=== PATIENT | female | born 1985 | race Caucasian/White ===

== ENCOUNTER 2017-12-24 20:59 | Inpatient (IN) | payer OTHER ==
[~2017-12-24] VITALS: Ht 157.5 cm; Wt 62.2 kg
[~2017-12-24 20:59] MED LIST: MIDAZOLAM 2 MG/2 ML VIAL ONE; PROPOFOL 200 MG/20 ML VIAL IV ONE; fentaNYL 0.05 MG/ML VIAL ONE
--- NOTE | 2017-12-24 21:25 | NUR ---
PT TAKEN TO BED 3
[2017-12-24 21:32] VITALS: BP 118/56
--- NOTE | 2017-12-24 21:49 | NUR ---
PATIENT PRESENTS TO ED WITH CELLULITIS. PT STATES SWOLLEN FOR ONE WEEK. THERE IS UNILATERAL TO THE LEFT LEG, ERYTHEMA NOTED TO BILATERAL LEG, SKIN WARM TO TOUCH, ERYTHEMA RADIATES BILATERAL LEGS TO ABDOMEN AND BACK.PT STATES NKA AT THE MOMENT, BUT DID STATES MILD RXN TO PREVIOUS ABX BACTRIM DS. DENIES N/V/D; AAOX4 WITH EVEN AND STEADY GAIT; PT DENIES ANY FEVER, CP, SOB, OR COUGH AT THIS TIME; PATIENT STATES PAIN OF 10/10 AT THIS TIME; VSS; PATIENT POSITIONED FOR COMFORT; HOB ELEVATED; BEDRAILS UP X2; BED DOWN. ER MD MADE AWARE OF PT STATUS.
--- NOTE | 2017-12-24 21:53 | NUR ---
Dr. Larios evaluating patient.
[2017-12-24] MEDS ORDERED: NACL 0.9% 500 ML IV SCH (21:55)
[2017-12-24] MEDS ORDERED: CLINDAMYCIN 900 MG in DEXTROSE 5% 100 ML IV ONE (21:55)
[2017-12-24] MEDS ORDERED: PIPERACILLIN/TAZOBACTAM 3.375 GM in DEXTROSE 5% 50 ML IV ONE (22:05)
[2017-12-24] MEDS ORDERED: PIPERACILLIN/TAZOBACTAM 3.375 GM VIAL IV ONE (22:17)
[2017-12-24 22:31] LABS: APPEARANCE,URINE SL CLOUDY (CLEAR); BILIRUBIN,URINE NEGATIVE (NEGATIVE); BLOOD, URINE NEGATIVE (NEGATIVE); COLOR,URINE YELLOW (YELLOW); LEUKOCYTE ESTERASE ,URINE 1+ (NEGATIVE); NITRITE, URINE NEGATIVE (NEGATIVE); PH,URINE 6.5 (5.0-9.0); UGLUCOSE NEGATIVE (NEGATIVE)
--- NOTE | 2017-12-24 22:31 | NUR ---
X-Ray at bedside.
[2017-12-24 22:36] LABS: HEMATOCRIT 26.1 % (36-48); HEMOGLOBIN 8.2 g/dL (12.0-16.0); MEAN CORPUSCULAR HEMOGLOBIN 22 pg (27-31); MEAN CORPUSCULAR HGB CONC 31 g/dL (33-37); MEAN CORPUSCULAR VOLUME 71 fL (80-94); PLATELET COUNT (AUTO) 257 K/uL (140-450); RED BLOOD CELL COUNT(AUTO) 3.68 MIL/uL (4.20-5.40); RED CELL DISTRIBUTION WIDTH 16.5 % (11.6-13.7)
[2017-12-24 22:46] LABS: ALBUMIN 2.5 g/dL (3.4-5.0); ANION GAP 15.4 (8-16); CARBON DIOXIDE 23.3 mmol/L (21-32); CREATININE 0.8 mg/dL (0.6-1.3); POTASSIUM 3.7 mmol/L (3.5-5.1); TOTAL BILIRUBIN 0.1 mg/dL (0.0-1.0)
[2017-12-24 22:52] LABS: PROTHROMBIN TIME 10.2 secs (10.8-13.4)
[2017-12-24 22:53] LABS: RBC,URINE 0-5 (RARE) /HPF (0-5)
[2017-12-24 22:59] LABS: WHITE BLOOD COUNT (AUTO) 19.1 K/uL (4.8-10.8)
[2017-12-24 23:00] LABS: EOSINOPHILS % (MANUAL) 1 % (0-4); LYMPHOCYTES % (MANUAL) 8 % (20-46); MONOCYTES % (MANUAL) 2 % (5-12)
[2017-12-24] MEDS ORDERED: CLINDAMYCIN 900 MG/6 ML VIAL IV ONE (23:13)
[2017-12-24] MEDS ORDERED: ONDANSETRON 4 MG/2 ML VIAL IVP PRN (23:35)
[2017-12-24] MEDS ORDERED: ACETAMINOPHEN 325 MG TAB PO PRN (23:35)
[2017-12-24] MEDS ORDERED: VANCOMYCIN 1,000 MG in DEXTROSE 5% 250 ML IV ONE (23:35)
[2017-12-24] MEDS ORDERED: VANCOMYCIN PER PHARMACY MC PRN (23:40)
--- NOTE | 2017-12-24 23:58 | NUR ---
TEDDY 1 GM NOT GIVEN CLEOCIN STILL RUNNING, WILL ENDORSE TO MED SURG NURSE
[2017-12-25 00:15] VITALS: BP 105/60
--- NOTE | 2017-12-25 00:15 | NUR ---
RECEIVED HANDOFF REPORT FROM AUTOMOBILE SPRING REPAIRER. PATIENT A&OX4. PATIENT DENIES PAIN. IV SITE PATENT AND INTACT. PATIENT HAS ERYTHEMA THROUGHOUT BODY, DENIES PAIN. PATIENT ORIENTED TO UNIT. SAFETY MEASURES ENSURED. CALL LIGHT WITHIN REACH. WILL CONTINUE TO MONITOR.
--- NOTE | 2017-12-25 00:25 | NUR ---
Patient will be admitted to care of . Admited to MS. Will go to room 111B. Belongings list completed. Report to MIHIR DOMINGO.
[2017-12-25] MEDS ORDERED: VANCOMYCIN 1,000 MG VIAL ONE (01:08)
[2017-12-25] MEDS: ZOLPIDEM 5 MG TAB PO PRN (01:46)
--- NOTE | 2017-12-25 07:10 | NUR ---
RECEIVED PATIENT REPORT AT BEDSIDE. PATIENT ASLEEP BUT AROUSABLE.REDNESS NOTED TO BLE. SKIN IS WARM TO TOUCH. IV LINE NOTED TO THE LEFT AC. BED LOWERED WITH CALL LIGHT WITHIN REACH. WILL CONTINUE TO MONITOR
--- NOTE | 2017-12-25 07:16 | NUR ---
ENDORSED PLAN OF CARE TO AM RN. PATIENT IN STABLE CONDITION.
[2017-12-25 08:00] VITALS: BP 116/58
[2017-12-25] MEDS: ENOXAPARIN 40 MG/0.4 ML SYR SUBQ SCH (08:19)
--- NOTE | 2017-12-25 08:32 | NUR ---
PATIENT HAS BEEN SCREENED AND CATEGORIZED LOW NUTRITION RISK. PATIENT WILL BE SEEN WITHIN 7 DAYS OF ADMISSION. 12/30/[address]
--- NOTE | 2017-12-25 09:30 | NUR ---
TEMPERATURE RECHECKED 99.5. NO S/S OF DISTRESS
[2017-12-25 09:51] LABS: HEMATOCRIT 26.6 % (36-48); HEMOGLOBIN 8.3 g/dL (12.0-16.0); MEAN CORPUSCULAR HEMOGLOBIN 22 pg (27-31); MEAN CORPUSCULAR HGB CONC 31 g/dL (33-37); MEAN CORPUSCULAR VOLUME 72 fL (80-94); PLATELET COUNT (AUTO) 269 K/uL (140-450); RED BLOOD CELL COUNT(AUTO) 3.73 MIL/uL (4.20-5.40); RED CELL DISTRIBUTION WIDTH 16.7 % (11.6-13.7)
[2017-12-25 10:06] LABS: ANION GAP 13.7 (8-16); CARBON DIOXIDE 24.4 mmol/L (21-32); CREATININE 0.8 mg/dL (0.6-1.3); POTASSIUM 4.1 mmol/L (3.5-5.1)
[2017-12-25 10:27] LABS: LYMPHOCYTES % (MANUAL) 3 % (20-46); MONOCYTES % (MANUAL) 4 % (5-12)
--- NOTE | 2017-12-25 11:30 | NUR ---
PATIENT ASLEEP IN BED. NO S/S OF DISTRESS NOTED
[2017-12-25] MEDS: VANCOMYCIN 750 MG in DEXTROSE 5% 250 ML IV SCH (12:51)
--- NOTE | 2017-12-25 14:45 | NUR ---
PATIENT ASLEEP IN BED. FAMILY MEMBER PRESENT AT BEDSIDE
[2017-12-25 14:46] LABS: BARBITURATE, URINE NEG. ng/ml (NEG <=200); BENZODIAZEPINE, URINE POS. ng/mL (NEG <=200); CANNABINOID, URINE NEG. ng/mL (NEG <=50); COCAINE, URINE NEG. ng/mL (NEG <=300); OPIATE, URINE NEG. ng/mL (NEG <=2000); PHENCYCLIDINE SCREEN,URINE NEG. ng/mL (NEG <=25)
--- NOTE | 2017-12-25 14:46 | NUR ---
Clinical review faxed to [facility] to [phone]
[2017-12-25] MEDS: HYDROcodone/APAP 5/325 MG 1 TAB TAB PO PRN ×3 (15:05→23:05)
[2017-12-25 16:00] VITALS: BP 114/57
--- NOTE | 2017-12-25 19:31 | NUR ---
PATIENT REPORT GIVEN AT BEDSIDE. PATIENT ENDORSED IN STABLE CONDITION
--- NOTE | 2017-12-25 19:35 | NUR ---
RECEIVED REPORT FROM DAY SHIFT RN, PATIENT RESTING IN BED, NO S/S OF DISTRESS NOTED, RESPIRATION EVEN AND UNLABORED, IV PATENT AND INTACT, SL AT THIS TIME. PLAN OF CARE DISCUSSED, PATIENT VERBALIZED UNDERSTANDING, CALL LIGHT WITHIN REACH, SAFETY MEASURE ENSURED, WILL CONTINUE TO MONITOR.
--- NOTE | 2017-12-25 21:18 | NUR ---
ASSISTED PATIENT TO THE BATHROOM, VOIDED X1, PATIENT IS BACK TO HER BED, NO S/S OF DISTRESS NOTED, CALL LIGHT WITHIN REACH, SAFETY MEASURE ENSURED, WILL CONTINUE TO MONITOR.
--- NOTE | 2017-12-25 23:20 | NUR ---
PATIENT ASKED FOR PAIN MEDICATION, UPON PAIN ASSESSMENT, LEG PAIN 8/10. NORCO GIVEN ORDERED, CALL WILL CONTINUE TO MONITOR.
[2017-12-26] VITALS: BP 102/55
[2017-12-26] MEDS: VANCOMYCIN 750 MG in DEXTROSE 5% 250 ML IV SCH ×3 (00:37→20:42)
[2017-12-26] MEDS: ZOLPIDEM 5 MG TAB PO PRN ×2 (00:43→23:42)
--- NOTE | 2017-12-26 01:46 | NUR ---
PATIENT IS SLEEPING, NO S/S OF DISTRESS NOTED, RESPIRATION EVEN AND UNLABORED, CALL LIGHT WITHIN REACH, SAFETY MEASURE ENSURED, WILL CONTINUE TO MONITOR.
--- NOTE | 2017-12-26 03:47 | NUR ---
NO CHANGE IN CONDITION, PATIENT IS SLEEPING, NO S/S OF DISTRESS NOTED, RESPIRATION EVEN AND UNLABORED, CALL LIGHT WITHIN REACH, SAFETY MEASURE ENSURED, WILL CONTINUE TO MONITOR.
[2017-12-26] MEDS: HYDROcodone/APAP 5/325 MG 1 TAB TAB PO PRN ×5 (04:11→22:01)
[2017-12-26 06:47] LABS: ANION GAP 14.1 (8-16); CARBON DIOXIDE 25.3 mmol/L (21-32); CREATININE 0.8 mg/dL (0.6-1.3); POTASSIUM 4.4 mmol/L (3.5-5.1)
[2017-12-26 07:04] LABS: BASOPHILS # (AUTO) 0.1 K/uL (0.00-0.22); BASOPHILS % (AUTO) 0.8 % (0.0-2.0); EOSINOPHILS # (AUTO) 0.2 K/uL (0-0.4); EOSINOPHILS % (AUTO) 1.2 % (0.0-4.0); HEMATOCRIT 28.5 % (36-48); HEMOGLOBIN 8.7 g/dL (12.0-16.0); LYMPHOCYTES # (AUTO) 1.3 K/uL (2.5-16.5); LYMPHOCYTES % (AUTO) 10.1 % (20.5-51.1); MEAN CORPUSCULAR HEMOGLOBIN 22 pg (27-31); MEAN CORPUSCULAR HGB CONC 31 g/dL (33-37); MEAN CORPUSCULAR VOLUME 73 fL (80-94); NEUTROPHILS # (AUTO) 10.2 K/uL (1.8-7.7); NEUTROPHILS % (AUTO) 79.9 % (42.2-75.2); PLATELET COUNT (AUTO) 341 K/uL (140-450); RED BLOOD CELL COUNT(AUTO) 3.91 MIL/uL (4.20-5.40); RED CELL DISTRIBUTION WIDTH 16.4 % (11.6-13.7); WHITE BLOOD COUNT (AUTO) 12.8 K/uL (4.8-10.8)
--- NOTE | 2017-12-26 07:12 | NUR ---
ASSUMED CONTINUITY OF CARE. NO SIGNS AND SYMPTOMS OF ACUTE DISTRESS NOTED. INITIAL ASSESSMENT DONE. KEEP COMFORTABLE ON BED. EXPLAINED DIAGNOSIS, PLAN OF CARE, PAIN MANAGEMENT TEACHING, USE OF CALL LIGHT/BED/TV/BATHROOM. VERBALIZED UNDERSTANDING. CALL LIGHT WITHIN REACH.
--- NOTE | 2017-12-26 07:14 | NUR ---
ENDORSED PLAN OF CARE TO DAY SHIFT NURSE GRACE, PATIENT IS IN STABLE CONDITION.
[2017-12-26 08:00] VITALS: BP 129/63
--- NOTE | 2017-12-26 08:00 | NUR ---
Patient's Plan of Care was discussed and reviewed with INDIVIDUALIZED EDUCATION PLAN AIDE: GRACE, WILL CONTINUE WITH CURRENT PLAN OF CARE.
[2017-12-26] MEDS: ENOXAPARIN 40 MG/0.4 ML SYR SUBQ SCH (08:44)
--- NOTE | 2017-12-26 09:50 | NUR ---
WOUND CARE NURSE -CARY CAME AND DID WOUND EVAL AND TREATMENT. TOLERATED WELL. NO C/O PAIN.
--- NOTE | 2017-12-26 10:00 | NUR ---
WOUND EVALUATION NOTE: REASON FOR WOUND EVALUATION: LLE CELLULITIS SKIN ASSESSMENT DONE ON THIS 32Y/O FEMALE PATIENT FROM HOME TO [facility], WITH INITIAL DIAGNOSIS OF RASHES TO LEGS,CHEST AND ABDOMINAL. NONE REPORTED PAST MEDICAL HISTORY. ALL ABOVE INFORMATION WAS OBTAINED FROM THE ADMISSION H&P AND PT. PT IS AAX4. LABS ARE WBC 12.8, H/H 8.7/28.5. GLUCOSE 112, ALBUMIN 2.5. PT/INR 10.2/1.5 SKIN WARM TO TOUCH, BODY TATTOO NOTICE. NO EDEMA, BLE WITH NO HAIR GROWTH AND NORMAL PEDAL PULSES. INITIAL PLAN OD CARE DISCUSSED WITH PT AND PRIMARY RN. PT VERBALIZES UNDERSTAND. INTEGUMENTARY: -LEFT MILD THIGH ABSCESS 2.5X2CM BROWN SOFT SCAB WITH ERYTHEMA, TENDER AND WARM TO TOUCH, MODERATE AMOUNT PURULENT DRAINAGE, PAIN 3/10 BEARABLE -MULTIPLE DRY SCABS UE/LE WITH LARGEST MEASURED 1X2 CM LEFT BELOW KNEE AND SMALLEST 0.3X0.3 CM RLE RECOMMENDATIONS: -SURGEON TO CONSULT POSSIBLE I&D -CLEANSE LEFT MILD THIGH ABSCESS WITH NS, PAT DRY, COVER WITH DRY DRESSING, QD AND PRN IF SOILING -PAINT MULTIPLE DRY SCABS UE/LE WITH BETADINE SOLUTION, QD AND ROYCE -KEEP SKIN CLEAN AND DRY AT ALL TIMES. RECOMMENDATIONS DISCUSSED WITH PRIMARY RN WILL FOLLOW UP PATIENT Q 7-10 DAYS AND PRN. PLEASE CONTACT WOUND CARE NURSE FOR ANY QUESTIONS AND CHANGES IN WOUND CONDITION.
--- NOTE | 2017-12-26 10:05 | NUR ---
CM NOTE CONCURRENT REVIEW FAXED TO [facility] [phone] STE[place] # [phone]
--- NOTE | 2017-12-26 11:00 | NUR ---
INSERTED IV ON RIGHT WRIST GAUGE #22. TOLERATED WELL. NO C/O PAIN.
[2017-12-26 12:00] VITALS: BP 111/60
--- NOTE | 2017-12-26 12:25 | NUR ---
DR. GUPTA CAME, CHECKED PT. WOUND ON LLE AND SPOKE TO PT. AT BEDSIDE.
[2017-12-26] MEDS ORDERED: NACL 0.9% IRR 250 ML BOTTLE IR SCH (13:00)
--- NOTE | 2017-12-26 14:00 | NUR ---
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 VERBALIZED UNDERSTANDING.
--- NOTE | 2017-12-26 14:21 | NUR ---
DR. BURNETT CAME, SPOKE TO PT. AT BEDSIDE.
[2017-12-26] MEDS ORDERED: MUPIROCIN 2% OINT 22 GM TUBE TP SCH (15:00)
[2017-12-26] MEDS ORDERED: CHLORHEXADINE GLUC 2% CLOTH TP SCH (15:00)
--- NOTE | 2017-12-26 19:15 | NUR ---
BEDSIDE REPORT GIVEN TO AUGUSTUS BELTRAN. IVF INFUSING WELL. IN STABLE CONDITION.
--- NOTE | 2017-12-26 19:25 | NUR ---
RECEIVED REPORT FROM DAY SHIFT NURSE, PATIENT RESTING IN BED, BOYFRIEND AT THE BEDSIDE, NO S/S OF DISTRESS NOTED, RESPIRATION EVEN AND UNLABORED, DENIES PAIN AT THIS TIME, IV PATENT AND INTACT, SL. PLAN OF CARE DISCUSSED, PATIENT VERBALIZED UNDERSTANDING, CALL LIGHT WITHIN REACH, SAFETY MEASURE ENSURED, WILL CONTINUE TO MONITOR.
--- NOTE | 2017-12-26 20:53 | NUR ---
DUE MEDICATION GIVEN, PATIENT TOLERATED WELL. NO S/S OF DISTRESS NOTED, RESPIRATION EVEN AND UNLABORED, CALL LIGHT WITHIN REACH, SAFETY MEASURE ENSURED, WILL CONTINUE TO MONITOR.
--- NOTE | 2017-12-26 22:10 | NUR ---
ASKED FOR PAIN MEDICATION, LEG PAIN 7/10, PAIN MEDIATION GIVEN ORDERED, CALL LIGHT WITHIN REACH, SAFETY MEASURE ENSURED, WILL CONTINUE TO MONITOR.
[2017-12-26 23:54] VITALS: BP 118/74
--- NOTE | 2017-12-27 00:31 | NUR ---
OLD IV INFILTRATED, STARTED NEW IV 22 ON LEFT FOREARM. TOLERATED WELL. OLD IV CATHETER TAKEN OUT, TIP INTACT, NO ACTIVE BLEEDING AT THE SITE. CALL LIGHT WITHIN REACH, SAFETY MEASURE ENSURED, WILL CONTINUE TO MONITOR.
--- NOTE | 2017-12-27 03:33 | NUR ---
PATIENT IS SLEEPING, NO S/S OF DISTRESS NOTED, RESPIRATION EVEN AND UNLABORED, CALL LIGHT WITHIN REACH, SAFETY MEASURE ENSURED, WILL CONTINUE TO MONITOR.
[2017-12-27] MEDS: VANCOMYCIN 750 MG in DEXTROSE 5% 250 ML IV SCH (04:53)
--- NOTE | 2017-12-27 04:53 | NUR ---
DUE VANCOMYCIN STARTED, PATIENT TOLERATED WELL. NO S/S OF DISTRESS NOTED, WILL CONTINUE TO MONITOR.
--- NOTE | 2017-12-27 07:15 | NUR ---
ENDORSED PLAN OF CARE TO DAY SHIFT RN, PATIENT IS IN STABLE CONDITION.
--- NOTE | 2017-12-27 07:30 | NUR ---
RECEIVED PT ON BED AAOX4. NO SOB NOTED. NO C/O PAIN AT THIS TIME. IV TO LEFT FOREARM PATENT AND INTACT. CHEST CLEAR. ABDOMEN SOFT, BOWEL SOUNDS PRESENT. DRESSING TO LT THIGH CELLULITIS DRY AND INTACT. NPO MAINTAINED FOR PROCEDURE. PT IS I&D OF LEFT THIGH WOUND TODAY, CONSENT ALREADY SIGNED BY PT. INSTRUCTED PT TO CALL FOR ASSISTANCE, CALL LIGHT WITHIN, PT VERBALIZED UNDERSTANDING.
[2017-12-27 07:54] LABS: BASOPHILS % (AUTO) 0.8 % (0.0-2.0); EOSINOPHILS # (AUTO) 0.1 K/uL (0-0.4); HEMOGLOBIN 8.6 g/dL (12.0-16.0); MEAN CORPUSCULAR HEMOGLOBIN 22 pg (27-31); MEAN CORPUSCULAR HGB CONC 31 g/dL (33-37); MEAN CORPUSCULAR VOLUME 72 fL (80-94); MONOCYTES # (AUTO) 0.6 K/uL (0.8-1.0); MONOCYTES % (AUTO) 10.4 % (1.7-9.3); NEUTROPHILS # (AUTO) 3.9 K/uL (1.8-7.7); NEUTROPHILS % (AUTO) 68.8 % (42.2-75.2); PLATELET COUNT (AUTO) 371 K/uL (140-450); RED BLOOD CELL COUNT(AUTO) 3.88 MIL/uL (4.20-5.40); RED CELL DISTRIBUTION WIDTH 16.1 % (11.6-13.7); WHITE BLOOD COUNT (AUTO) 5.6 K/uL (4.8-10.8)
[2017-12-27 08:00] VITALS: BP 91/55
[2017-12-27 08:20] LABS: ANION GAP 12.5 (8-16); CARBON DIOXIDE 26.1 mmol/L (21-32); CREATININE 0.7 mg/dL (0.6-1.3); POTASSIUM 3.6 mmol/L (3.5-5.1)
[2017-12-27] MEDS: ENOXAPARIN 40 MG/0.4 ML SYR SUBQ SCH (09:00)
--- NOTE | 2017-12-27 10:30 | NUR ---
SURGICAL CHECKLIST DONE. OR STAFF STATED THAT PT WILL BE PICKED UP AROUND 11AM TODAY. PT NOTIFIED, VERBALIZED UNDERSTANDING.
--- NOTE | 2017-12-27 11:15 | NUR ---
PT WHEELED TO SURGERY IN STABLE CONDITION.
[2017-12-27] MEDS ORDERED: BUPIVACAINE-MPF 0.25% 30 ML VIAL INJ ONE (11:36)
[2017-12-27] MEDS ORDERED: fentaNYL 0.05 MG/ML VIAL ONE ×2 (11:39→12:30)
[2017-12-27] MEDS ORDERED: MIDAZOLAM 2 MG/2 ML VIAL ONE ×2 (11:40→12:30)
[2017-12-27] MEDS ORDERED: MORPHINE SULFATE 2 MG/ML SYR IVP PRN (12:10)
[2017-12-27] MEDS ORDERED: MORPHINE SULFATE 4 MG/ML SYR IVP PRN ×2 (12:10)
[2017-12-27] MEDS ORDERED: MIDAZOLAM 2 MG/2 ML VIAL IV ONE (12:10)
--- NOTE | 2017-12-27 12:17 | NUR ---
CM NOTE CONCURRENT REVIEW FAXED TO [facility] [phone] STE[place] PH# [phone]. PER [facility] KAYLIE CHOI, IF PATIENT WILL NEED HOME HEALTH ON DISCHARGE, TO SEND ORDER TO [facility] FAX# [phone] AND TO SET UP WITH [facility] FAX# [phone] PH# [phone] OR [facility] [place] FAX# [phone] PH# [phone].
[2017-12-27] MEDS ORDERED: MORPHINE SULFATE 4 MG/ML SYR ONE ×2 (12:26→12:30)
[2017-12-27] MEDS ORDERED: ONDANSETRON 4 MG/2 ML VIAL ONE (12:30)
[2017-12-27] MEDS ORDERED: SEVOFLURANE 250 ML BTL INH ONE (12:30)
[2017-12-27] MEDS ORDERED: PROPOFOL 200 MG/20 ML VIAL IV ONE (12:30)
[2017-12-27 12:50] VITALS: BP 136/80
--- NOTE | 2017-12-27 12:50 | NUR ---
PT CAME BACK FROM PACU IN STABLE CONDITION. PT AAOX4. NO SOB NOTED. NO C/O PAIN AT THSIS TIME. BV/S STABLE.
--- NOTE | 2017-12-27 13:00 | NUR ---
DRESSING TO LEFT THIGH S/P I&D DRY AND INTACT.
[2017-12-27] MEDS ORDERED: ACET-2869 PO (13:27)
[2017-12-27] MEDS ORDERED: AMOX-999 PO (13:27)
[2017-12-27] MEDS ORDERED: DOXY100C9 PO (13:27)
--- NOTE | 2017-12-27 14:00 | NUR ---
PT SEEN BY DR. GUPTA WITH NEW ORDERS.
--- NOTE | 2017-12-27 14:29 | NUR ---
KAYLIE NOTE RECEIVED ORDER FOR HOME HEALTH. FAXED ORDER TO [facility]. PER PATIENT, SHE HAS NO PREFERENCE FOR HOME HEALTH. PER [facility] KAYLIE CHOI SEND TO [facility]. FAXED ORDER TO [facility] [phone]. PER PAUL OF [facility]# [phone], THE ARE ACCEPTING THE PATIENT AND THEY HAVE A NURSE TO SEE PATIENT WHEN DISCHARGED. PATIENT'S NURSE TO CALL [facility] TO INFORM THEM WHEN PATIENT HAS A DISCHARGE ORDER. EDDY DOMINGO AWARE. [facility] KAYLIE CHOI AWARE.
--- NOTE | 2017-12-27 15:00 | NUR ---
PT TOLERATED CLEAR LIQUIDS, NO N&V NOTED.
--- NOTE | 2017-12-27 16:00 | NUR ---
PT SEEN BY DR. BURNETT WITH PRESCRIPTIONS.
[2017-12-27 16:11] VITALS: BP 118/73
--- NOTE | 2017-12-27 16:15 | NUR ---
DISCHARGE PRESCRIPTIONS GIVEN TO WHICH VERBALIZED FULL UNDERSTANDING OF THE INSTRUCTIONS.
--- NOTE | 2017-12-27 17:50 | NUR ---
SPOKE WITH PAUL ANDUJAR # [phone], STATED THE PT IS ON THE LIST FOR HOME HEALTH FOR WOUND CARE AND WILL SEND A NURSE TO PT'S ADDRESS TOMORROW. NOTIFIED PT, VERBALIZED UNDERSTANDING. SUPPLIES FOR WOUND DRESSING GIVEN TO PT.
--- NOTE | 2017-12-27 17:55 | NUR ---
PT STATED SHE WILL HAVE TO EAT OUTSIDE SOON SHE IS DISCHARGED. NO NAUSEA NAD VOMITING NOTED. PT VOIDED FREELY TO THE BATHROOM.
--- NOTE | 2017-12-27 18:00 | NUR ---
ARM BANDS AND IV REMOVED, CANNULA TIP INTACT.
--- NOTE | 2017-12-27 18:00 | NUR ---
DISCHARGE INSTRUCTIONS GIVEN TO PT. BACTROBAN OINTMENT TUBE GIVEN TO PT AND INSTRUCTED TO CONTINUE HER TREATMENT FOR MRSA OF NARES, TO ADMINISTER ON BILATERAL NARES ONCE DAILY X 3 MORE DAYS, PT VERBALIZED UNDERSTANDING.
--- NOTE | 2017-12-27 18:15 | NUR ---
PT WHEELED OUT TO THE PARKING LOT IN STABLE CONDITION. AAOX4. DRESSING TO LEFT THIGH DRY AND INTACT. NO C/O PAIN AT THIS TIME. PT IS D/C HOME WITH HOME HEALTH FOR HOME CARE. PT IS D/C HOME WITH A FRIEND.
== END 2017-12-27 18:15 | disposition home health service (06) | DRG 383 ==
LOC: MED 20:59 → MTU 23:33
PROVIDERS: ADMIT Hospitalist; ATTEND Hospitalist
PROC: 0JBM0ZZ Excision of Left Upper Leg Subcutaneous Tissue and Fascia, Open Approach (ICD-10-PCS; principal; 2017-12-27 15:05)
DX: L03.115 Cellulitis of right lower limb (principal); I96 Gangrene, not elsewhere classified; E44.0 Moderate protein-calorie malnutrition; L27.0 Generalized skin eruption due to drugs and medicaments taken internally; T36.95XA Adverse effect of unspecified systemic antibiotic, initial encounter; N39.0 Urinary tract infection, site not specified; D64.9 Anemia, unspecified; L02.416 Cutaneous abscess of left lower limb; Z88.2 Allergy status to sulfonamides; Z68.25 Body mass index [BMI] 25.0-25.9, adult; Z80.3 Family history of malignant neoplasm of breast; Y92.89 Other specified places as the place of occurrence of the external cause; Z98.891 History of uterine scar from previous surgery; Z80.9 Family history of malignant neoplasm, unspecified
CPT/HCPCS: 36415; 71045; 73562; 73590; 80048; 80053; 80202; 80305; 81001; 83605; 85025; 85610; 85651; 85730; 86140; 87040; 87070; 87075; 87081; 87086; 87186; 87205; 96365; 96367; 99285; J1650; J2250; J2270; J2405; J2543; J2704; J3010; J3370; J3490; J7060; Q0092

== ENCOUNTER 2018-11-28 13:11 | Emergency (ER) | payer OTHER ==
[~2018-11-28] VITALS: Ht 157.5 cm; Wt 70.3 kg
[~2018-11-28 13:11] MED LIST changes: +AMOX-999 PO; +DOXY100C9 PO; +HYDR-5122 PO; -MIDAZOLAM 2 MG/2 ML VIAL ONE; -PROPOFOL 200 MG/20 ML VIAL IV ONE; -fentaNYL 0.05 MG/ML VIAL ONE
[2018-11-28 13:23] VITALS: BP 107/61
--- NOTE | 2018-11-28 13:33 | NUR ---
PT AMBULATED TO ER BED 12
--- NOTE | 2018-11-28 13:40 | NUR ---
PT. BIB SELF WITH C/O ABDOMINAL PAIN X YESTERDAY. + BLEEDING, + CLOTTING, + CRAMPING, PT STATES SHE IS 12 WEEKS AND MY HAVE A MISCARRIAGE. [id number]. 10/10 CRAMPING SENSATION IN LOWER ABD THAT IS NON RADIATING. DENIES ANY N/V/D. PT. STATES " I FELT A BLOB COME OUT THIS MORNING I THINK I MISCARRIED". ER MD MADE AWARE. RR EVEN AND UNLABORED. SAFETY PRECAUTIONS IN PLACE. WILL CONTINUE TO MONITOR.
--- NOTE | 2018-11-28 13:50 | NUR ---
ER MD LUNA AT BEDSIDE
--- NOTE | 2018-11-28 14:06 | NUR ---
LAB AT BEDSIDE AT THIS TIME
[2018-11-28 14:15] LABS: BASOPHILS % (AUTO) 0.3 % (0.0-2.0); EOSINOPHILS # (AUTO) 0.2 K/uL (0-0.4); EOSINOPHILS % (AUTO) 2.3 % (0.0-4.0); HEMATOCRIT 32.9 % (36-48); HEMOGLOBIN 10.7 g/dL (12.0-16.0); LYMPHOCYTES # (AUTO) 1.7 K/uL (2.5-16.5); LYMPHOCYTES % (AUTO) 23.8 % (20.5-51.1); MEAN CORPUSCULAR HEMOGLOBIN 26 pg (27-31); MEAN CORPUSCULAR HGB CONC 32 g/dL (33-37); MEAN CORPUSCULAR VOLUME 81.5 fL (80-94); MONOCYTES # (AUTO) 0.5 K/uL (0.8-1.0); MONOCYTES % (AUTO) 6.5 % (1.7-9.3); NEUTROPHILS # (AUTO) 4.7 K/uL (1.8-7.7); NEUTROPHILS % (AUTO) 67.1 % (42.2-75.2); PLATELET COUNT (AUTO) 224 K/uL (140-450); RED BLOOD CELL COUNT(AUTO) 4.04 MIL/uL (4.20-5.40); RED CELL DISTRIBUTION WIDTH 17.4 % (11.6-13.7)
--- NOTE | 2018-11-28 14:48 | NUR ---
PT. RESTING COMFORTABLY IN BED, RR EVEN AND UNLABORED. HOB ELEVATED. VSS. SAFETY PRECAUTIONS IN PLACE. WILL CONTINUE TO MONITOR.
[2018-11-28 14:56] LABS: APPEARANCE,URINE HAZY (CLEAR); BILIRUBIN,URINE NEGATIVE (NEGATIVE); BLOOD, URINE 3+ (NEGATIVE); COLOR,URINE RED (YELLOW); LEUKOCYTE ESTERASE ,URINE 2+ (NEGATIVE); NITRITE, URINE NEGATIVE (NEGATIVE); UGLUCOSE NEGATIVE (NEGATIVE)
[2018-11-28 14:59] LABS: RBC,URINE 11-20 (MOD) /HPF (0-5)
[2018-11-28 15:01] LABS: WBC,URINE 6-15 (FEW) /HPF (0-5)
[2018-11-28] MEDS ORDERED: KETOROLAC 60 MG/2 ML VIAL IM ONE (15:20)
--- NOTE | 2018-11-28 15:47 | NUR ---
PT. SLEEPING IN BED, RR EVEN AND UNLABORED. VSS. HOB ELEVATED. WILL CONTINUE TO MONITOR.
[2018-11-28 16:09] VITALS: BP 108/60
--- NOTE | 2018-11-28 16:09 | NUR ---
Patient discharged with v/s stable. Written and verbal after care instructions given and explained. Patient alert, oriented and verbalized understanding of instructions. Ambulatory with steady gait. All questions addressed prior to discharge. ID band removed. Patient advised to follow up with PMD. Rx of norco and naprosyn given. Patient educated on indication of medication including possible reaction and side effects. Opportunity to ask questions provided and answered.
== END 2018-11-28 16:09 | disposition home or self-care (01) ==
LOC: MED 13:11
DX: O03.9 Complete or unspecified spontaneous abortion without complication (principal); Z79.2 Long term (current) use of antibiotics; Z79.891 Long term (current) use of opiate analgesic; Z88.2 Allergy status to sulfonamides
CPT/HCPCS: 36415; 76817; 81001; 81025; 84702; 85025; 86900; 86901; 87086; 87186; 96372; 99284; J1885; Q0092

== ENCOUNTER 2019-06-28 13:45 | Emergency (ER) | payer MEDICAID, OTHER ==
[~2019-06-28] VITALS: Ht 157.5 cm; Wt 68.5 kg
[2019-06-28 13:47] VITALS: BP 135/80
--- NOTE | 2019-06-28 13:50 | NUR ---
MINNIE IVERSON TO CHAIR C
--- NOTE | 2019-06-28 13:50 | NUR ---
33/F [facility]. PT IS , 19 WEEKS, 2 DAYS. [id number]. PT DENIES ANY PAIN OR SYMPTOMS. PT AWAKE AND ALERT, SKIN NORMAL WARM AND DRY, RR EVEN AND UNLABORED. DENIES MED HX. REPORTS TAKING XANAX AND NORCO.
--- NOTE | 2019-06-28 14:13 | NUR ---
Patient discharged with v/s stable. Written and verbal after care instructions given and explained. Patient verbalized understanding. Ambulatory with [place] [employer] in custody. All questions addressed prior to discharge. Advised to follow up with PMD.
--- NOTE | 2019-06-28 14:13 | NUR ---
Wily moya in ED - 06/28/19 at 1418 by QUANG Patient discharged with v/s stable. Written and verbal after care instructions given and explained. Patient verbalized understanding. Ambulatory with steady gait. All questions addressed prior to discharge. Advised to follow up with PMD.
== END 2019-06-28 14:13 ==
LOC: MED 13:45
DX: Z34.92 Encounter for supervision of normal pregnancy, unspecified, second trimester (principal); Z02.89 Encounter for other administrative examinations; Z3A.21 21 weeks gestation of pregnancy; Z79.899 Other long term (current) drug therapy
CPT/HCPCS: 81025; 99283